=== PATIENT | male | born 1990 | race Caucasian/White ===

== ENCOUNTER 2020-07-28 10:20 | Outpatient (CLI) | payer BC, SELFPAY ==
--- NOTE | 2020-07-28 11:00 | NEURO_ITS ---
Patient Number: [id number] Impression: # Complains of numbness of hands. # Left Carpal Tunnel Syndrome. # No ulnar neuropathy. # Normal needle/EMG exam. # Clinical correlation recommended. Nerve Conduction Studies Anti Sensory Summary Table Stim Site NR Peak (ms) P-T Amp (?V) Site1 Site2 Delta-P (ms) Dist (cm) Harley (m/s) Left Median Anti Sensory (2-3nd Digit) Wrist 3.8 24.4 Wrist 2-3nd Digit 3.8 14.0 37 Wrist 4.1 42.3 Wrist 2-3nd Digit 3.8 14.0 37 Right Median Anti Sensory (2-3nd Digit) Wrist 3.8 19.2 Wrist 2-3nd Digit 3.8 14.0 37 Wrist 3.9 34.6 Wrist 2-3nd Digit 3.8 14.0 37 Left Radial Anti Sensory (Base 1st Digit) Wrist 2.7 23.8 Wrist Base 1st Digit 2.7 0.0 Right Radial Anti Sensory (Base 1st Digit) Wrist 2.8 11.4 Wrist Base 1st Digit 2.8 0.0 Left Ulnar Anti Sensory (5th Digit) Wrist 3.1 15.9 Wrist 5th Digit 3.1 14.0 45 Right Ulnar Anti Sensory (5th Digit) Wrist 3.3 53.3 Wrist 5th Digit 3.3 14.0 42 Motor Summary Table Stim Site NR Onset (ms) O-P Amp (mV) Site1 Site2 Delta-0 (ms) Dist (cm) Harley (m/s) Left Median Motor (Abd Poll Brev) Wrist 4.3 4.2 Elbow Wrist 5.8 32.0 55 Elbow 10.1 3.5 Right Median Motor (Abd Poll Brev) Wrist 3.7 2.8 Elbow Wrist 5.2 29.0 56 Elbow 8.9 2.4 Left Ulnar Motor (Abd Dig Minimi) Wrist 3.2 4.9 A Elbow Wrist 5.7 32.0 56 A Elbow 8.9 4.5 Right Ulnar Motor (Abd Dig Minimi) Wrist 3.1 5.6 A Elbow Wrist 6.0 33.0 55 A Elbow 9.1 4.7 F Wave Studies NR F-Lat (ms) L-R F-Lat (ms) Left Median (Mrkrs) (Abd Poll Brev) 31.56 0.79 Right Median (Mrkrs) (Abd Poll Brev) 32.35 0.79 Left Ulnar (Mrkrs) (Abd Dig Min) 32.34 0.99 Right Ulnar (Mrkrs) (Abd Dig Min) 31.35 0.99 EMG Side Muscle Nerve Root Ins Act Fibs Amp Dur Recrt Comment Right 1stDorInt Ulnar C8-T1 Nml Nml Nml Nml Nml Right Ext Indicis Radial (Post Int) C7-8 Nml Nml Nml Nml Nml Right Ext Digitorum Radial (Post Int) C7-8 Nml Nml Nml Nml Nml Right BrachioRad Radial C5-6 Nml Nml Nml Nml Nml Right PronatorTeres Median C6-7 Nml Nml Nml Nml Nml Right Abd Poll Brev Median C8-T1 Nml Nml Nml Nml Nml Left 1stDorInt Ulnar C8-T1 Nml Nml Nml Nml Nml Left Ext Indicis Radial (Post Int) C7-8 Nml Nml Nml Nml Nml Left Ext Digitorum Radial (Post Int) C7-8 Nml Nml Nml Nml Nml Left BrachioRad Radial C5-6 Nml Nml Nml Nml Nml Left PronatorTeres Median C6-7 Nml Nml Nml Nml Nml Left Abd Poll Brev Median C8-T1 Nml Nml Nml Nml Nml MTDD
== END 2020-07-28 10:21 | disposition home or self-care (01) ==
PROVIDERS: PCP Nurse Practitioner Adult Health; Visit Provider Nurse Practitioner Adult Health
DX: R20.2 Paresthesia of skin (principal); G56.02 Carpal tunnel syndrome, left upper limb
CPT/HCPCS: 95886; 95911

== ENCOUNTER 2020-11-04 08:27 | Emergency (ER) | payer BC, SELFPAY ==
[2020-11-04 08:47] VITALS: BP 121/76; PULSE 106; RESP 15; TEMP 36.7; O2SAT 99
[2020-11-04 08:53] LABS: Glucose Point of Care 402 (65-105)
[2020-11-04] MEDS: SODIUM CHLORIDE 0.9% IV 1,000 ML 999 ML IV CONT ×2 (08:59→09:42)
[2020-11-04 09:02] LABS: Basophils Percent Auto 0.7 % (0.2-1.2); Eosinophils Absolute Auto 0.2 K/mm3 (0-0.3); Eosinophils Percent Auto 2.6 % (0-4.4); Hematocrit 44.5 % (42.0-52.0); Hemoglobin 15.4 g/dL (14.0-18.0); Immature Granulocyte Absolute 0.02 K/mm3 (0.00-0.031); Immature Granulocyte Percent A 0.3 % (0-0.5); Lymphocytes Absolute Auto 0.93 K/mm3 (0.9-3.2); Lymphocytes Percent Auto 16.1 % (18.3-44.2); Mean Corpuscular HGB Conc 34.6 g/dl (32-36); Mean Corpuscular Hemoglobin 32.2 pg (26-34); Mean Corpuscular Volume 92.9 fl (80-100); Mean Platelet Volume 9.9 fl (7.4-10.4); Monocytes Absolute Auto 0.5 K/mm3 (0.1-0.6); Monocytes Percent Auto 8.3 % (2.6-8.5); Neutrophils Absolute Auto 4.2 K/mm3 (1.3-6.7); Platelet Count Result 261 k/mm3 (150-375); Red Blood Count 4.79 M/mm3 (4.6-6.20); Red Cell Distribution Width 12.3 % (11.5-14.5); White Blood Count 5.8 K/mm3 (4.5-10.0)
[2020-11-04 09:13] LABS: Alanine Aminotransferase 30 U/L (4-50); Albumin Level 4.5 g/dL (3.5-5.1); Alkaline Phosphatase 75 U/L (38-126); Anion Gap 13 mmol/L (8-16); Aspartate Amino Transferase 41 U/L (17-59); Bilirubin,Total 0.5 mg/dL (0.2-1.3); Blood Urea Nitrogen 12 mg/dL (9-20); Calcium 8.7 mg/dL (8.4-10.2); Carbon Dioxide 25 mmol/L (22-30); Chloride 101 mmol/L (98-107); Estimated CRCL calculation 133 ml/min; Estimated Glomerular Filt Rate > 60; Glucose 395 mg/dL (75-110); Phosphorus 4.4 mg/dL (2.5-4.5); Potassium 4.5 mmol/L (3.4-5.0); Sodium 139 mmol/L (137-145)
[2020-11-04 09:15] LABS: Add Urine Microscopic? YES; Appearance Urine Clear (Clear); Bacteria Urine Trace /hpf; Bilirubin Urine Negative (Negative); Blood Urine Negative (Negative); Color Urine Straw (Yellow); Glucose Urine UA 3+ mg/dL (Negative); Ketones Urine 1+ mg/dL (Negative); Leukocyte Esterase Ur Negative LEU/UL (Negative); Nitrate Urine Negative (Negative); Protein Urine 1+ mg/dL (Negative); RBC Urine 0-2 /hpf (0-2); Specific Grav Ur 1.028 (1.001-1.035); Urobilinogen Urine Negative mg/dL (<2.0); WBC Urine 0-3 /hpf
[2020-11-04 09:21] LABS: Beta-Hydroxybutyrate/Acetoacetate 1.41 mmol/L (0.02-0.27)
--- NOTE | 2020-11-04 09:26 | ED.RECABL ---
HPI - Recheck/Abnormal Lab/Rx General Chief Complaint: Recheck/Abnormal Lab/Rx Stated Complaint: blood sugar messed up Time Seen by Provider: 11/04/20 09:11 Source: patient Mode of arrival: ambulatory Limitations: no limitations History of Present Illness HPI narrative: This is a 30-year-old male that presents the emergency department for abnormal blood sugar x2 weeks. Reports he recently was treated with antibiotics for pneumonia. Reports since then he has been having some trouble keeping his blood sugar under control. His blood sugar has been as high as 600. He does have a primary care doctor. Reports he has been taking his insulin as prescribed. Does report some nausea and vomiting this morning. Denies fever, abdominal pain, or dysuria. Related Data Home Medications Medication Instructions Recorded Confirmed dextroamphetamine-amphetamine 20 20 mg PO BID 05/11/20 05/15/20 mg tablet glucagon (human recombinant) 1 mg 1 mg SUB-Q Q20M PRN 05/15/20 05/15/20 solution for injection Allergies Allergy/AdvReac Type Severity Reaction Status Date / Time amoxicillin Allergy Unknown Verified 09/06/10 16:04 Cephalosporins Allergy Unknown Verified 09/06/10 16:04 tramadol Allergy Unknown Verified 09/06/10 16:12 Soy Milk Allergy Mild Uncoded 05/02/18 10:06 Review of Systems Review of Systems: Narrative: CONSTITUTIONAL: Denies fever GASTROINTESTINAL: Reports nausea and vomiting. Denies abdominal pain GENITOURINARY: Denies dysuria All systems reviewed & are unremarkable except as noted in HPI and below PMFSH Past Medical History Medical History (Updated 11/04/20 @ 10:22 by Soumya Jiang PA-C) ADHD Anxiety Type 1 diabetes mellitus with hyperglycemia, with long-term current use of insulin Family History Family History Other Family history of coronary artery disease Family history of malignant neoplasm of male breast Social History Social History Smoking status: Never smoker Alcohol intake: current Exam Narrative: Exam Narrative: GENERAL: Well-appearing, well-nourished, and in no acute distress. HEAD: Normocephalic, atraumatic. EYES: EOMI. ENT: Mucous membranes moist. Oropharynx without tonsillar hypertrophy exudate or other lesions. NECK: Supple. No adenopathy or masses. CHEST: Clear to auscultation. No respiratory distress. No wheezes rales or rhonchi HEART: Regular rate and rhythm. No murmur heard. Normal peripheral pulses. ABDOMEN: Soft, nontender, nondistended, normal active bowel sounds. No CVA tenderness EXTREMITIES: Normal range of motion. No edema. SKIN: Warm, dry, no rash. NEURO: No focal deficits. Alert and oriented x3. PSYCH: Normal mood and affect Course Vital Signs Vital signs: Vital Signs Temperature 98.1 F 11/04/20 08:47 Pulse Rate 106 H 11/04/20 08:47 Respiratory Rate 15 11/04/20 08:47 Blood Pressure 121/76 11/04/20 08:47 Pulse Oximetry 99 11/04/20 08:47 Temperature 98.1 F 11/04/20 08:47 Pulse Rate 106 H 11/04/20 08:47 Respiratory Rate 15 11/04/20 08:47 Blood Pressure 121/76 11/04/20 08:47 Pulse Oximetry 99 11/04/20 08:47 MDM - Recheck/Abnormal Lab/Rx MDM Narrative Medical decision making narrative: Patient presents to the ER for hyperglycemia. He is afebrile and nontoxic appearing. Mildly tachycardic upon arrival, this normalized with IV fluid administration. CBC is without leukocytosis. Metabolic panel notable for blood sugar of 395. No anion gap and patient's bicarb is normal. UA with glucose and 1+ ketones. Beta hydroxybutyrate is elevated. Patient hydrated while in the ED without evidence of DKA with normal anion gap and no acidosis, is felt appropriate for further outpatient evaluation. Most recent blood sugar 291. He was given warnings to return to the ER Lab Data Attestation: I reviewed the patient's lab result
[2020-11-04] MEDS: INSULIN HUMAN REGULAR (*BKC) 100 UNITS/ML 7 UNITS IV PUSH (09:37)
[2020-11-04 10:33] LABS: Glucose Point of Care 291 (65-105)
[2020-11-04 11:19] VITALS: BP 145/81; PULSE 80; RESP 18; O2SAT 99
== END 2020-11-04 11:21 | disposition home or self-care (01) ==
PROVIDERS: Emergency Provider Emergency Medicine; PCP Nurse Practitioner Adult Health
DX: E10.65 Type 1 diabetes mellitus with hyperglycemia (principal); Z79.4 Long term (current) use of insulin; F90.9 Attention-deficit hyperactivity disorder, unspecified type
CPT/HCPCS: 36415; 80053; 81001; 82010; 82948; 83735; 84100; 85025; 96361; 96374; 99284; J1815; J7030

== ENCOUNTER 2021-04-15 09:40 | Emergency (ER) | payer BC, SELFPAY ==
[2021-04-15 09:48] VITALS: BP 146/86; PULSE 79; RESP 20; TEMP 36.7; O2SAT 100
--- NOTE | 2021-04-15 10:45 | ED.EAR ---
HPI - Ear Problem General Chief complaint: Ear Stated complaint: right ear swelling Time Seen by Provider: 04/15/21 10:00 Source: patient Mode of arrival: ambulatory Limitations: no limitations History of Present Illness HPI Narrative: Patient is a 30-year-old male who presents complaining of right ear pain x1 day. He reports discharge from ear this am and reports tenderness with palpation to ear. Patient denies fever and all other complaints at this time. He denies taking over the counter medication for pain prior to arrival. Patient reports swimming frequently over the past few weeks. Patient denies significant medical history. MD Complaint: ear pain, ear discharge and decreased hearing Location: right ear Related Data Home Medications Medication Instructions Recorded Confirmed dextroamphetamine-amphetamine 20 20 mg PO BID 05/11/20 05/15/20 mg tablet glucagon (human recombinant) 1 mg 1 mg SUB-Q Q20M PRN 05/15/20 05/15/20 solution for injection insulin aspart U-100 100 unit/mL See Rx Instructions SUBCUT TID 12/16/20 (3 mL) subcutaneous pen Allergies Allergy/AdvReac Type Severity Reaction Status Date / Time amoxicillin Allergy Unknown Unknown Verified 04/15/21 10:02 Cephalosporins Allergy Unknown Unknown Verified 04/15/21 10:02 tramadol Allergy Unknown Unknown Verified 04/15/21 10:02 Soy Milk Allergy Mild Unknown Uncoded 04/15/21 10:02 Review of Systems Review of Systems: Narrative: CONSTITUTIONAL: Denies fever, chills, or sweats. EYES: Denies visual changes, redness, or discharge. ENT: Right otalgia CARDIOVASCULAR: Denies chest pain, palpitations, or edema. RESPIRATORY: Denies cough or dyspnea. GASTROINTESTINAL: Denies abdominal pain, nausea, vomiting, or diarrhea. GENITOURINARY: Denies dysuria or hematuria. SKIN: Denies rash or itching. MUSCULOSKELETAL: Denies back pain, joint pain, or myalgia. NEUROLOGIC: Denies headache, numbness, dizziness, or weakness. PSYCHIATRIC: Denies anxiety or depression. [facility] Past Medical History Medical History ADHD Anxiety Type 1 diabetes mellitus with hyperglycemia, with long-term current use of insulin Family History Family History Other Family history of coronary artery disease Family history of malignant neoplasm of male breast Social History Social History (Updated 04/15/21 @ 10:50 by LOLA Solis) Smoking status: Never smoker Alcohol intake: current Alcohol use details: occasional Substance use: current Substance use type: marijuana Other substance usage details: occasional Exam Narrative: Exam Narrative: GENERAL: Well-appearing, well-nourished, and in no acute distress. HEAD: Normocephalic, atraumatic. EYES: EOMI. No redness or drainage. Conjunctiva are normal. ENT: Mucous membranes pink and moist. Erythema and edema with discharge noted to right ear canal, TM not visualized at this time, edema to preauricular and posterior auricular lymph nodes, tenderness with palpation, no erythema or warmth noted to external ear at this time. CHEST: No respiratory distress. HEART: Regular rate and rhythm. EXTREMITIES: Normal range of motion. No edema. SKIN: Warm, dry, no rash. NEURO: No focal deficits. Alert and oriented x3. Gait steady. PSYCH: Normal affect. No signs of depression or anxiety. Course Vital Signs Vital signs: Vital Signs Temperature 36.7 C 04/15/21 09:48 Pulse Rate 79 04/15/21 09:48 Respiratory Rate 20 04/15/21 09:48 Blood Pressure 146/86 H 04/15/21 09:48 Pulse Oximetry 100 04/15/21 09:48 Temperature 36.7 C 04/15/21 09:48 Pulse Rate 89 04/15/21 11:32 Respiratory Rate 15 04/15/21 11:32 Blood Pressure 144/91 H 04/15/21 11:32 Pulse Oximetry 98 04/15/21 11:32 Medical Decision Making MDM Narrative Medical decision making narrative: Patient's ear flushed with saline, l
--- NOTE | 2021-04-15 11:22 | PC.NURSE ---
ASSUMED CARE OF PT AT THIS TIME, DARIELA WEBSTER AT BEDSIDE, DISCUSSED POC
[2021-04-15 11:32] VITALS: BP 144/91; PULSE 89; RESP 15; O2SAT 98
== END 2021-04-15 11:57 | disposition home or self-care (01) ==
PROVIDERS: Emergency Provider Nurse Practitioner; PCP Nurse Practitioner Adult Health
DX: H60.501 Unspecified acute noninfective otitis externa, right ear (principal); E11.9 Type 2 diabetes mellitus without complications; Z79.4 Long term (current) use of insulin
CPT/HCPCS: 99283; A9270

== ENCOUNTER 2021-10-13 12:48 | Emergency (ER) | payer SELFPAY ==
--- NOTE | ~2021-10-13 | CT_ITS ---
EXAMINATION: CT abdomen pelvis wo con DATE: 10/13/2021 16:43 INDICATION: Left flank pain TECHNIQUE: Computed tomography (CT) of the abdomen and pelvis was performed without intravenous contr ast. Automated exposure control and iterative reconstruction technique were employed. The dose-length product was 252.31 mGy-cm. COMPARISON: None FINDINGS: Minimal discoid atelectasis in the anterior right middle lobe and lingula. Heart size is normal. No p ericardial or pleural effusion. Liver, gallbladder, spleen, pancreas and bilateral adrenal glands are normal. Kidneys and ureters are normal with no urolithiasis, hydroureteronephrosis or perinephric/ur eteral stranding. Bladder is normal. Prostate is significantly enlarged for age measuring 5.1 x 4.1 c m in maximal transaxial dimensions. No bowel obstruction. The appendix is not visualized with discrim ination of the multiple loops of bowel in the abdomen and pelvis limited by the relative paucity of i ntervening intra-abdominal fat. No abscess or free intraperitoneal gas or fluid. No pathologically en larged abdominal or pelvic lymphadenopathy. IMPRESSION: 1. Prostatomegaly, atypical for age. 2. No urolithiasis or other acute intra-abdominal/pelvic process. Reviewed, dictated and finalized at location H. SEAL ASSEMBLER
--- NOTE | ~2021-10-13 | XR_ITS ---
EXAMINATION: XR chest 2V DATE: 10/13/2021 15:10 INDICATION: Left rib pain. Pleuritic chest pain. TECHNIQUE: Frontal and lateral views of the chest were obtained. COMPARISON: Chest single view 05/02/2018 FINDINGS: The chest demonstrates clear lungs without pneumonia, pleural effusion, or pneumothorax. Th e heart size is normal. IMPRESSION: 1. No acute cardiopulmonary disease. Reviewed, dictated and finalized at location A. EN EQUIPMENT PREPARER
[2021-10-13 13:07] VITALS: BP 144/87; PULSE 80; RESP 18; TEMP 36.6; O2SAT 100
[2021-10-13 14:59] LABS: Glucose Point of Care 67 mg/dl (65-105)
--- NOTE | 2021-10-13 15:14 | PC.NURSE ---
Patient reported to Dr. Farrell he felt like his sugar was low. Bedside glucose checked. Crackers and juice provided to patient at this time.
[2021-10-13 16:01] LABS: Basophils Percent Auto 0.7 % (0.2-1.2); Eosinophils Absolute Auto 0.2 K/mm3 (0-0.3); Hemoglobin 13.3 g/dL (14.0-18.0); Immature Granulocyte Absolute 0.01 K/mm3 (0.00-0.031); Immature Granulocyte Percent A 0.2 % (0-0.5); Lymphocytes Absolute Auto 1.66 K/mm3 (0.9-3.2); Mean Corpuscular HGB Conc 34.1 g/dl (32-36); Mean Corpuscular Hemoglobin 32.4 pg (26-34); Mean Corpuscular Volume 94.9 fl (80-100); Mean Platelet Volume 9.8 fl (7.4-10.4); Monocytes Absolute Auto 0.5 K/mm3 (0.1-0.6); Monocytes Percent Auto 10.2 % (2.6-8.5); Neutrophils Absolute Auto 2.2 K/mm3 (1.3-6.7); Neutrophils Percent Auto 47.9 % (45.5-73.1); Platelet Count Result 209 k/mm3 (150-375); Red Blood Count 4.11 M/mm3 (4.6-6.20); Red Cell Distribution Width 11.6 % (11.5-14.5); White Blood Count 4.6 K/mm3 (4.5-10.0)
[2021-10-13 16:12] LABS: Alanine Aminotransferase 23 U/L (4-50); Albumin Level 3.9 g/dL (3.5-5.1); Alkaline Phosphatase 53 U/L (38-126); Anion Gap 7 mmol/L (8-16); Aspartate Amino Transferase 26 U/L (17-59); Bilirubin,Total 0.3 mg/dL (0.2-1.3); Blood Urea Nitrogen 8 mg/dL (9-20); Calcium 8.8 mg/dL (8.4-10.2); Carbon Dioxide 26 mmol/L (22-30); Chloride 104 mmol/L (98-107); Estimated CRCL calculation 184 ml/min; Estimated Glomerular Filt Rate > 60; Glucose 170 mg/dL (65-110); Lipase 48 U/L (23-300); Potassium 3.9 mmol/L (3.4-5.0); Sodium 137 mmol/L (137-145)
[2021-10-13 16:14] LABS: INR 0.9
[2021-10-13 16:14] LABS: Add Urine Microscopic? YES; Appearance Urine Clear (Clear); Bilirubin Urine Negative (Negative); Blood Urine Negative (Negative); Color Urine Yellow (Yellow); Glucose Urine UA 3+ mg/dL (Negative); Ketones Urine Negative (Negative); Leukocyte Esterase Ur Negative LEU/UL (Negative); Mucus Urine Few /lpf; Nitrate Urine Negative (Negative); Protein Urine 2+ mg/dL (Negative); RBC Urine 0-2 /hpf (0-2); Specific Grav Ur 1.021 (1.001-1.035); Urobilinogen Urine Negative mg/dL (<2.0); WBC Urine 0-3 /hpf
[2021-10-13 16:15] LABS: Partial Thromboplastin Time 25.5 SECONDS (22.3-36.8)
[2021-10-13] MEDS: KETOROLAC (*BKC) 60 MG/2 ML VIAL IM (16:25)
--- NOTE | 2021-10-13 17:26 | ED.GENADULT ---
HPI - General Adult General Chief complaint: Unspecified Stated complaint: left side rib pain Time Seen by Provider: 10/13/21 14:36 Source: patient and RN notes reviewed Mode of arrival: ambulatory Limitations: no limitations History of Present Illness HPI narrative: This is a 31 year old male with history of diabetes mellitus and peripheral neuropathy who presents for evaluation left flank pain. Patient developed left flank pain 3 days ago when he was sitting on the couch. His pain as been constant and nonradiating. His pain is worse with movement and breathing. He has taken Aleve for his pain. He denies associated nausea, vomiting, cough, fever, chills or shortness of breath. He also is complaining of feeling like his blood sugar is low because he has not eaten. Related Data Home Medications Medication Instructions Recorded Confirmed dextroamphetamine-amphetamine 20 20 mg PO BID 05/11/20 05/15/20 mg tablet glucagon (human recombinant) 1 mg 1 mg SUB-Q Q20M PRN 05/15/20 05/15/20 solution for injection insulin aspart U-100 100 unit/mL See Rx Instructions SUBCUT TID 12/16/20 (3 mL) subcutaneous pen Allergies Allergy/AdvReac Type Severity Reaction Status Date / Time amoxicillin Allergy Unknown Unknown Verified 04/15/21 10:02 Cephalosporins Allergy Unknown Unknown Verified 04/15/21 10:02 tramadol Allergy Unknown Unknown Verified 04/15/21 10:02 Soy Milk Allergy Mild Unknown Uncoded 04/15/21 10:02 Review of Systems Review of Systems: All systems reviewed & are unremarkable except as noted in HPI and below PMFSH Past Medical History Medical History ADHD Anxiety Type 1 diabetes mellitus with hyperglycemia, with long-term current use of insulin Family History Family History Other Family history of coronary artery disease Family history of malignant neoplasm of male breast Social History Social History (Updated 04/15/21 @ 10:50 by LOLA Solis) Smoking status: Never smoker Alcohol intake: current Alcohol use details: occasional Substance use: current Substance use type: marijuana Other substance usage details: occasional Exam Narrative: GENERAL: Well-appearing, well-nourished, and in no acute distress. HEAD: Normocephalic, atraumatic THROAT:Mucous membranes moist, Oropharynx normal without erythema, exudate, peritonsillar swelling or fluctuance NECK: Supple, without lymphadenopathy or mass RESPIRATORY: No respiratory distress, Airway patent, Respirations non-labored, Clear to auscultation without rales, rhonchi or wheeze HEART: Regular rate and rhythm. No murmur heard. Normal peripheral pulses. ABDOMEN: Soft, nontender, nondistended, normal active bowel sounds. No masses. No rebound or guarding, No organomegaly. EXTREMITIES: No edema, normal strength with full range of motion. SKIN: Warm, dry, normal color without rash NEURO: Alert and oriented x3. CN 2-12 grossly intact. No focal deficits. PSYCH: Normal mood and affect. GI: Other: focal tenderness, left flank Course Reevaluation(s) Reevaluation #1: I discussed with patient labs and CT. I discussed that CT shows an enlarge prostate so he will need to have follow up. labs negative for infection and PE. Date: 10/13/21 Time: 17:36 Vital Signs Vital signs: Vital Signs Temperature 97.9 F 10/13/21 13:07 Pulse Rate 80 10/13/21 13:07 Respiratory Rate 18 10/13/21 13:07 Blood Pressure 144/87 H 10/13/21 13:07 Pulse Oximetry 100 10/13/21 13:07 Temperature 97.9 F 10/13/21 13:07 Pulse Rate 68 10/13/21 18:01 Respiratory Rate 18 10/13/21 18:01 Blood Pressure 144/87 H 10/13/21 13:07 Pulse Oximetry 99 10/13/21 18:01 Medical Decision Making Vital Signs Vital Signs: Vital Signs Temperature 97.9 F 10/13/21 13:07 Pulse Rate 80 10/13/21 13:07 Respiratory R
[2021-10-13] MEDS: CYCLOBENZAPRINE HCL 10 MG TABLET PO (17:56)
[2021-10-13 18:01] VITALS: PULSE 68; RESP 18; O2SAT 99
== END 2021-10-13 18:01 | disposition home or self-care (01) ==
PROVIDERS: Emergency Provider General Practice; PCP Nurse Practitioner Adult Health
DX: R10.9 Unspecified abdominal pain (principal); N40.0 Benign prostatic hyperplasia without lower urinary tract symptoms; E10.42 Type 1 diabetes mellitus with diabetic polyneuropathy; F90.9 Attention-deficit hyperactivity disorder, unspecified type; F41.9 Anxiety disorder, unspecified
CPT/HCPCS: 36415; 71046; 74176; 80053; 81001; 82948; 83690; 85025; 85380; 85610; 85730; 96372; 99284; A9270; J1885

== ENCOUNTER 2022-04-14 16:06 | Emergency (ER) | payer OTHER, SELFPAY ==
--- NOTE | ~2022-04-14 | XR_ITS ---
EXAMINATION: XR hand LT min 3V INDICATION: Left hand pain TECHNIQUE: Three views of the left hand are obtained. COMPARISON: None available FINDINGS: There is no fracture. There is flexion at the third proximal interphalangeal joint with hyp erextension at the third distal interphalangeal joint. The joint spaces are maintained. There is soft tissue swelling of the third finger. IMPRESSION: 1. Flexion at the third proximal interphalangeal joint with extension at the third distal interphalan geal joint. Absence of obvious fracture suggests tendinous avulsion. Reviewed, dictated and finalized at location F. IMPRESSION: 1. Flexion at the third proximal interphalangeal joint with extension at the th ird distal interphalangeal joint. Absence of obvious fracture suggests tendinou s avulsion.
[2022-04-14 16:13] VITALS: BP 159/71; PULSE 112; RESP 18; TEMP 37; O2SAT 98
--- NOTE | 2022-04-14 17:25 | ED.WOUNDLAC ---
HPI - Wound/Laceration General Chief Complaint: Wound/Laceration Stated Complaint: 3rd finger lac Time Seen by Provider: 04/14/22 16:18 History of Present Illness HPI narrative: 31-year-old male presents the emergency room for evaluation of a laceration to his left third finger. Patient states that he was moving furniture at home, when he suffered a laceration from a piece of the metal frame. Related Data Home Medications Medication Instructions Recorded Confirmed dextroamphetamine-amphetamine 20 20 mg PO BID 05/11/20 05/15/20 mg tablet (Adderall) glucagon (human recombinant) 1 mg 1 mg subcut Q20M PRN hypoglycemia 05/15/20 05/15/20 solution for injection (Glucagon Emergency Kit) insulin aspart U-100 100 unit/mL See Rx Instructions subcut TID 12/16/20 (3 mL) subcutaneous pen (Novolog Flexpen U-100 Insulin aspart) Allergies Allergy/AdvReac Type Severity Reaction Status Date / Time amoxicillin Allergy Unknown Unknown Verified 04/14/22 18:04 Cephalosporins Allergy Unknown Unknown Verified 04/14/22 18:04 tramadol Allergy Unknown Unknown Verified 04/14/22 18:04 Soy Milk Allergy Severe Swelling Uncoded 04/14/22 18:04 of Lip/Tongue/Throat Review of Systems Review of Systems: CONSTITUTIONAL: Denies fever, chills, or sweats. EYES: Denies visual changes, redness, or discharge. ENT: Denies rhinorrhea, congestion, sore throat, or otalgia. CARDIOVASCULAR: Denies chest pain, palpitations, or edema. RESPIRATORY: Denies cough or dyspnea. GASTROINTESTINAL: Denies abdominal pain, nausea, vomiting, or diarrhea. GENITOURINARY: Denies dysuria or hematuria. SKIN: Reports laceration to the left middle finger MUSCULOSKELETAL: Denies back pain, joint pain, or myalgia. NEUROLOGIC: Denies headache, numbness, dizziness, or weakness. PSYCHIATRIC: Denies anxiety or depression. [facility] Past Medical History Medical History ADHD Anxiety Type 1 diabetes mellitus with hyperglycemia, with long-term current use of insulin Family History Family History Other Family history of coronary artery disease Family history of malignant neoplasm of male breast Social History Social History Smoking status: Never smoker Alcohol intake: current Alcohol use details: occasional Substance use: current Substance use type: marijuana Other substance usage details: occasional Exam Narrative: GENERAL: Well-appearing, well-nourished, and in no acute distress. HEAD: Normocephalic, atraumatic. EYES: PERRLA and EOMI. ENT: Nares clear, no rhinorrhea or epistaxis. Mucous membranes moist. Oropharynx without tonsillar hypertrophy exudate or other lesions. Bilateral TMs pearly mujica nonbulging NECK: Supple. No adenopathy or masses. No carotid bruits or JVD CHEST: Clear to auscultation. No respiratory distress. No wheezes rales or rhonchi HEART: Regular rate and rhythm. No murmur heard. Normal peripheral pulses. ABDOMEN: Soft, nontender, nondistended, normal active bowel sounds. EXTREMITIES: Normal range of motion. No edema. Left third finger: [place]-neck deformity of DIP joint SKIN: Left third finger: 1.3 cm laceration dorsal surface, over the PIP joint, no tendon disruption noted, neurovascular is intact distally NEURO: No focal deficits. Alert and oriented x3. PSYCH: Normal mood and affect. Course Vital Signs Vital signs: Vital Signs Temperature 37.0 C 04/14/22 16:13 Pulse Rate 112 H 04/14/22 16:13 Respiratory Rate 18 04/14/22 16:13 Blood Pressure 159/71 H 04/14/22 16:13 Pulse Oximetry 98 04/14/22 16:13 Oxygen Delivery Room Air 04/14/22 16:13 Temperature 37.0 C 04/14/22 16:13 Pulse Rate 112 H 04/14/22 16:13 Respiratory Rate 18 04/14/22 16:13 Blood Pressure 159/71 H 04/14/22 16:13 Pulse Oximetry 98 04/14/22 16:13 Oxygen Del
--- NOTE | 2022-04-14 18:02 | PC.NURSE ---
Pt states he took his own insulin, discussed BS was 460 in EMS
[2022-04-14 18:49] VITALS: BP 128/71; PULSE 78; RESP 18; TEMP 37.2; O2SAT 99
== END 2022-04-14 18:49 | disposition home or self-care (01) ==
LOC: ANHED 18:17
PROVIDERS: Emergency Provider Nurse Practitioner Family; PCP Nurse Practitioner Adult Health
DX: S61.213A Laceration without foreign body of left middle finger without damage to nail, initial encounter (principal); M20.032 Swan-neck deformity of left finger(s); E10.9 Type 1 diabetes mellitus without complications; F90.9 Attention-deficit hyperactivity disorder, unspecified type; Z79.4 Long term (current) use of insulin; W26.8XXA Contact with other sharp object(s), not elsewhere classified, initial encounter
CPT/HCPCS: 12001; 73130; 99283

== ENCOUNTER 2022-04-28 01:01 | Day surgery (SDC) | payer OTHER, SELFPAY ==
[2022-04-26 09:37] VITALS: BMI 23.6
--- NOTE | 2022-04-26 09:45 | PC.NURSE ---
Report to the Outpatient Waiting Room, entrance under the green pavilion located off [facility], at time 1100 on date 04/28/22. OR Time: 1300. - You and your visitor will be asked a series of questions to screen for COVID 19 for your protection. - Only one visitor is allowed at this time. - The patient visitor is requested to leave or wait in car when not with patient. - A mask is required within the hospital. Patients may have clear liquids (water, carbonated beverages, clear teas, apple juice) until 3 hours prior to surgery with a maximum of 20 ounces. - No food from midnight until time of surgery Take the following medications with a SIP of water the morning of surgery: 1/2 AM INSULIN DOSE Medications to discontinue per physician: N/A Date to take last dose: N/A Please no make-up, nail mongolian, hairspray, perfume, deodorant, or body powder the day of surgery. No jewelry (including any body piercings) or valuables the day of surgery, leave them at home. Please take a shower or bath the night before, or the morning of, surgery with an antibacterial soap. Wear comfortable, loose fitting clothing. - Jewelry must be removed prior to entering the operating room. Rings and piercings that are not removed may be cut off. - The hospital will not accept responsibility for valuables. - Please leave all valuables, including medications, at home the day of surgery. If you are going home after surgery, a licensed powder truck driver must drive you home. - NO public transportation without another adult. - We recommend that an adult stay with you for 24 hours following discharge. - We also recommend that you do not drive, make important decision, drink alcoholic beverages, or take any drugs that were not prescribed by your health care provider for at least 24 hours after your discharge time. Follow any additional instructions given to you from your surgeon. If you or anyone in your household have experienced Covid symptoms in the past week, please notify your surgeon or the nurse liaison at the phone number below for possible testing. Telephone instructions given to PT - SE BR[facility] and asked if any additional questions and then verbalized understanding. Patient advised to call surgeon office or pre surgery nurse liaison [phone] if any additional questions.
--- NOTE | ~2022-04-28 | XR_ITS ---
EXAMINATION: XR surgery orthopedic DATE: 04/28/2022 14:57 INDICATION: C-wire fixation of the left third digit TECHNIQUE: 2 fluoroscopic images of the left third digit were obtained during procedure performed by Dr. Pineda. Radiologist was not present for the imaging or procedure. The amount of fluoroscopy time u sed during this procedure was 0.4 minutes. COMPARISON: 04/14/2022 FINDINGS: Interval reduction of the previously seen pooling years deformity of the left third digit. There is a percutaneous wire extending obliquely across the proximal interphalangeal joint which has been fixed in extension. No fracture. There is a tourniquet about the base of the third digit with more distal soft tissue swelling. There is a likely open surgical wound at the dorsal aspect of the proximal inte rphalangeal joint. IMPRESSION: 1. Percutaneous wire fixation across the left third proximal interphalangeal joint which is fixed in full extension. See procedure note for further detail. Reviewed, dictated and finalized at location A. IMPRESSION: 1. Percutaneous wire fixation across the left third proximal interphalangeal sia int which is fixed in full extension. See procedure note for further detail.
--- NOTE | 2022-04-28 07:17 | WPDHPUPDATE1 ---
History and Physical Update Update Date/Time: 04/28/22 07:17 History and Physical has been reviewed, including an updated exam of the patient. There are NO changes in the patient's condition. Risks, benefits, and alternatives have been discussed and questions answered. Patient agrees to proceed with procedure.
[2022-04-28 07:53] VITALS: BP 107/69; PULSE 87; RESP 18; TEMP 36.4; O2SAT 99
--- NOTE | 2022-04-28 08:31 | SUR.PREOP ---
PT ARRIVED EARLY FOR SURGERY DUE TO RIDE AVAILABILITY. PT RESTING ON STRETCHER. DENIES NEEDS.
--- NOTE | 2022-04-28 09:21 | WPDHPUPDATE1 ---
History and Physical Update Update Date/Time: 04/28/22 09:21 Repair of central slip of the extensor tendon of right middle finger with possible Mitek anchor and/or C-wire . History and Physical has been reviewed, including an updated exam of the patient. There are NO changes in the patient's condition. Risks, benefits, and alternatives have been discussed and questions answered. Patient agrees to proceed with procedure.
[2022-04-28 10:24] LABS: Glucose Point of Care 267 mg/dl (65-105)
--- NOTE | 2022-04-28 10:24 | WPDANESEPPF ---
Anes - Initial Pre Proc Eval Procedure: Operation Date: 04/28/22 13:00 Proposed Procedures p Repair Extensor Tendon Central Slip Left Middle Finger, Possible K- Wire, Possible Mitek Anchors - Dennis Pineda MD Date/Time: 04/28/22 10:24 Surgeon: Dennis Pineda MD Pre Op Diagnosis: laceration central slip to the lft middle finger Patient Data Age: 31 Gender: M Height: 1.78 m Weight: 74.84 kg Allergies Allergy/AdvReac Type Severity Reaction Status Date / Time tramadol Allergy Unknown Headache Verified 04/26/22 09:33 fentanyl AdvReac Unknown Headache Verified 04/26/22 09:33 Soy Milk Allergy Severe Swelling Uncoded 04/26/22 09:33 of Lip/Tongue/Throat Home Medications Medication Instructions Recorded Confirmed Type glucagon (human recombinant) 1 mg 1 mg subcut Q20M PRN hypoglycemia 05/15/20 04/26/22 History solution for injection (Glucagon Emergency Kit) insulin syringe-needle U-100 1 mL #300 ea 08/13/20 Rx 30 gauge x 1/2 (BD Insulin Syringe Ultra-Fine) pen needle, diabetic 30 gauge x #400 ea 08/13/20 Rx 5/16 blood sugar diagnostic (Contour #600 ea 11/06/20 Rx Next Test Strips) insulin aspart U-100 100 unit/mL See Rx Instructions subcut TID 12/16/20 04/26/22 History (3 mL) subcutaneous pen (Novolog Flexpen U-100 Insulin aspart) insulin glargine 100 unit/mL 25 unit (0.25 mL) subcut QPM 30 12/16/20 04/26/22 Rx subcutaneous solution (Lantus days #7.5 mL U-100 Insulin) Patient hx anesthesia problems: none Family hx anesthesia problems: none Results Review: All pre-operative results and documents have been reviewed as part of the pre-operative evaluation. FOR[facility]LY [facility] Past Medical History Medical History ADHD Anxiety Type 1 diabetes mellitus with hyperglycemia, with long-term current use of insulin Family History Family History Other Family history of coronary artery disease Family history of malignant neoplasm of male breast Social History Social History Smoking packs per day: 1 Smoking cigarettes per day: 20.0 Years smoked: 16 Smoking pack-years: 16.00 Smoking status: Former smoker Tobacco type: cigarettes Smoking end date: 10/23/20 Alcohol intake: never Alcohol use details: occasional Substance use: current Substance use type: marijuana Other substance usage details: occasional Living arrangements: with friend(s) Spiritual care concerns: No Anes - Eval Final PreProcedure Day of Procedure 04/28/22 10:24 Patient weight: normal Heart: regular rate and rhythm Lungs: clear to auscultation Airway: Mallampati scale class II Neurological: alert and oriented Last oral intake: >/= 8 hours ASA classification: III Emergent: no Anesthetic plan: proceed Anesthesia type and monitoring: general GIVS and standard monitoring Results Review: All pre-operative results and documents have been reviewed as part of the pre-operative evaluation. Informed Consent: The patient's anesthetic plan and its attendant risks and benefits were discussed with the patient/family/POA. Questions were solicited and answers provided to the satisfaction of the patient/family/POA.
[2022-04-28] MEDS: LACTATED RINGERS 1,000 ML 30 ML IV CONT ×2 (10:25→15:04)
[2022-04-28] MEDS: MIDAZOLAM HCL (*CRX) 2 MG/2 ML VIAL IV PUSH (10:32)
[2022-04-28 10:40] LABS: Anion Gap 6 mmol/L (8-16); Blood Urea Nitrogen 16 mg/dL (9-20); Calcium 8.9 mg/dL (8.4-10.2); Carbon Dioxide 28 mmol/L (22-30); Chloride 102 mmol/L (98-107); Estimated CRCL calculation 150 ml/min; Estimated Glomerular Filt Rate > 60; Glucose 253 mg/dL (65-110); Potassium 4.8 mmol/L (3.4-5.0); Sodium 136 mmol/L (137-145)
--- NOTE | 2022-04-28 11:18 | SUR.PREOP ---
1035 PT MEDICATED FOR NERVOUSNESS AND C/O HEADACHE. 1048 PT RESTING QUIETLY WITH EYES CLOSED, 1110 PT RESTING QUIETLY WITH EYES CLOSED
[2022-04-28 13:32] LABS: Glucose Point of Care 317 mg/dl (65-105)
--- NOTE | 2022-04-28 13:35 | WPDHPUPDATE1 ---
History and Physical Update Update Date/Time: 04/28/22 13:35 History and Physical has been reviewed, including an updated exam of the patient. There are NO changes in the patient's condition. Risks, benefits, and alternatives have been discussed and questions answered. Patient agrees to proceed with procedure.
--- NOTE | 2022-04-28 13:36 | WPDHPUPDATE1 ---
History and Physical Update Update Date/Time: 04/28/22 13:36 History and Physical has been reviewed, including an updated exam of the patient. There are NO changes in the patient's condition. Risks, benefits, and alternatives have been discussed and questions answered. Patient agrees to proceed with procedure.
[2022-04-28] MEDS: INSULIN HUMAN REGULAR (*BKC) 100 UNITS/ML SUB-Q (13:45)
[2022-04-28] MEDS: LIDOCAINE/EPINEPHRINE 0.5%/1:200,000 50 ML VIAL 10 ML INFILTRATE (14:20)
[2022-04-28 15:04] VITALS: BP 86/51; PULSE 63; RESP 20; TEMP 36.4; O2SAT 95
[2022-04-28 15:10] VITALS: BP 89/54; PULSE 63; RESP 20; O2SAT 95
[2022-04-28 15:16] LABS: Glucose Point of Care 285 mg/dl (65-105)
--- NOTE | 2022-04-28 15:17 | SUR.PHASEII ---
1517- Call to anesthesiologist Dr. Bacon to notify patient's BG is 285. Per Dr. Bacon once patient awake instruct him to give usual dosing of insulin to manage elevated blood glucose.
[2022-04-28 15:30] VITALS: BP 98/56; PULSE 62; RESP 18; O2SAT 97
--- NOTE | 2022-04-28 15:30 | SUR.PHASEII ---
1530- Notified patient of elevated blood glucose of 285 and to manage with usual insulin dosing. Per patient he will treat with insulin.
[2022-04-28 15:50] VITALS: BP 97/61; PULSE 72; RESP 18
--- NOTE | 2022-04-28 15:56 | W.PM.PROC2 ---
Procedure Note - Detailed Date of Procedure 04/28/22 Pre-op Diagnosis laceration central slip to the lft middle finger Post-op Diagnosis Other (Laceration of left middle finger extensor tendon central slip with painful boutonnier deformity.) Procedure Performed Repair of left middle finger extensor tendon central slip with internal c-wire fixation. 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 There is a boutonniere deformity that is painful with the D IP joint. There was a neat transverse laceration across the central slip without deeper injury or evidence of septic joint Description of Procedure The left middle finger was marked on the patient as he waited in the holding area. He was taken to the operating room where he was placed supine on the operating table. He was given IV sedation. The extremity was prepped and draped in usual fashion. A time-out was held and confirmed. The digit was blocked with 1% lidocaine with epinephrine the a digital tourniquet was applied to the base of the finger. The site was accessed through the transverse laceration and Juan type extension is taken onto the middle and the proximal phalanx allowing elevation of triangular skin flaps and exposure of the entire site of injury and both ends of the tendon. There was minimal scarring at this point we were able to see into the interphalangeal joint there appeared to be no additional injuries to cartilage or sign of infection. With extension of the digit apposition of the tendon ends was easily achieved. The repair was done with a 3-0 Ethibond 2 strand repair with modified Dickinson technique. This was then oversewn with the running 5 0 nylon Nickerskiold stitch. A 0.045 in C-wire was then passed across the joint beginning in the middle phalanx and exiting from the proximal phalanx. Pin was fully buried beneath skin. It was bent, cut short and twisted away from the skin. The skin wound was closed with running 5 0 nylon. An Praveen wrap bandage with lightly wrapped Coban was applied. Estimated Blood Loss 0 Drains No Packing No Pathology None sent Complications No immediate complications Condition Stable Disposition Same day
== END 2022-04-28 16:10 | disposition home or self-care (01) ==
PROVIDERS: Anesthesiology; Visit Provider Plastic Surgery
PROC: (CPT 26426; principal; 2022-04-28 13:00)
DX: S66.323A Laceration of extensor muscle, fascia and tendon of left middle finger at wrist and hand level, initial encounter (principal); E10.9 Type 1 diabetes mellitus without complications; Z79.4 Long term (current) use of insulin; Z87.891 Personal history of nicotine dependence; W26.8XXA Contact with other sharp object(s), not elsewhere classified, initial encounter
CPT/HCPCS: 26426; 36415; 80048; 82948; 99199; A9270; C1713; J0131; J1815; J2250; J2704; J7120

== ENCOUNTER 2022-06-01 01:55 | Day surgery (SDC) | payer OTHER, SELFPAY ==
--- NOTE | 2022-05-26 16:32 | PC.NURSE ---
Report to the Outpatient Waiting Room, entrance under the green pavilion located off [facility], at time 0930 _ on date 06/01/22___. OR Time: 1030 _. - You and your visitor will be asked a series of questions to screen for COVID 19 for your protection. - Only one visitor is allowed at this time. - The patient visitor is requested to leave or wait in car when not with patient. - A mask is required within the hospital. Patients may have clear liquids (water, carbonated beverages, clear teas, apple juice) until 3 hours prior to surgery with a maximum of 20 ounces. - No food from midnight until time of surgery - Infants may have breast milk until 4 hours before surgery, formula 6 hours prior to surgery. - Children will be allowed to drink immediately following surgery. If applicable, please bring a bottle or sippy cup to assist with drinking. Juice, water, soda, and popsicles are readily available. For infants on formula, please bring formula the day of surgery. Pacifiers are allowed. Take the following medications with a SIP of water the morning of surgery: __AM MEDICATIONS INCLUDING Medications to discontinue per physician ___NONE Date to take last dose Please no make-up, nail bengali, hairspray, perfume, deodorant, or body powder the day of surgery. No jewelry (including any body piercings) or valuables the day of surgery, leave them at home. Please take a shower or bath the night before, or the morning of, surgery with an antibacterial soap. Wear comfortable, loose fitting clothing. Children are encouraged to wear pajamas. - Jewelry must be removed prior to entering the operating room. Rings and piercings that are not removed may be cut off. - The hospital will not accept responsibility for valuables. - Please leave all valuables, including medications, at home the day of surgery. If you are going home after surgery, a licensed petroleum transport driver must drive you home. - NO public transportation without another adult. - We recommend that an adult stay with you for 24 hours following discharge. - We also recommend that you do not drive, make important decision, drink alcoholic beverages, or take any drugs that were not prescribed by your health care provider for at least 24 hours after your discharge time. For Pediatric surgeries, we recommend two adults accompany the child home (only one inside the building at this time). Follow any additional instructions given to you from your surgeon. If you or anyone in your household have experienced Covid symptoms in the past week, please notify your surgeon or the nurse liaison at the phone number below for possible testing. Telephone instructions given to PATIENT and asked if any additional questions and then verbalized understanding. Patient advised to call surgeon office or pre surgery nurse liaison [phone] if any additional questions.
--- NOTE | ~2022-06-01 | XR_ITS ---
EXAMINATION: XR surgery orthopedic DATE: 06/01/2022 11:35 CDT INDICATION: REMOVAL C-WIRE LT MIDDLE FINGER . TECHNIQUE: 4 fluoroscopic images of the left third digit were obtained during wire removal performed by the surgeon. I was not present in the operating room. Fluoroscopy exposure time was 6 seconds. Cum ulative dose was 0.0368 mGy. COMPARISON: 04/28/2022 FINDINGS: Fluoroscopic images document localization of and removal of the fixation wire in the left third digit . IMPRESSION: Fluoroscopic documentation of fixation wire removal. Please refer to the operative note for complete procedural details . Reviewed, dictated and finalized at location K. IMPRESSION: Fluoroscopic documentation of fixation wire removal. Please refer to the operat tan note for complete procedural details .
--- NOTE | 2022-06-01 08:26 | WPDHPUPDATE1 ---
History and Physical Update Update Date/Time: 06/01/22 08:26 History and Physical has been reviewed, including an updated exam of the patient. There are NO changes in the patient's condition. Risks, benefits, and alternatives have been discussed and questions answered. Patient agrees to proceed with procedure.
[2022-06-01 11:34] VITALS: BP 128/76; PULSE 78; RESP 16; O2SAT 99
[2022-06-01 11:44] VITALS: BP 129/84; PULSE 75; RESP 16; O2SAT 99
[2022-06-01] MEDS: LIDO 1%/EPINEPHRINE 1:100,000 50 ML VIAL 10 ML INFILTRATE (11:51)
[2022-06-01 11:54] VITALS: BP 140/73; PULSE 78; RESP 16; O2SAT 98
[2022-06-01 12:10] VITALS: BP 136/73; PULSE 71; RESP 16
--- NOTE | 2022-06-01 12:31 | W.PM.PROC2 ---
Procedure Note - Detailed Date of Procedure 06/01/22 Pre-op Diagnosis Hx of Laceration of Cenral Slip Left Middle Finger Post-op Diagnosis Same Procedure Performed Planned removal of fixation C-wire from left middle phalanx of left middle finger Surgeon Dennis Pineda MD Anesthesia Local Description of Procedure The patient's left middle finger was marked in the holding area. He was taken to the operating room where he was able to put himself on the operating table. The extremity was prepped and draped in usual fashion. An intrathecal block with 1% lidocaine with epinephrine 3 milliliter was given. Adequate anesthesia was obtained. The digital tourniquet was applied. The digit was tested for pain control. The C-arm was brought to the table and a 25 gauge localizing needle was applied at the presumed site of the distal end of this C-wire. The site was confirmed by C-arm and the small incision was made. Blunt dissection revealed the distal end of the pin. This was grasped with a needle zuniga and retrieved without difficulty. The skin was closed with 3 simple 5 0 nylon stitches.. Well the digit was anesthetized we were able to increase the passive range of motion at the distal interphalangeal joint and at the proximal interphalangeal joint. This was demonstrated on images taken of the proximal interphalangeal joint in extension and passive flexion. The range of motion was demonstrated to the patient as well. A Band-Aid was applied around the stitches and a custom 3.5 cm volar splint was applied under Coban to the palmar surface of the proximal interphalangeal joint region for protection. Patient has instructions and some active range of motion by taking the splint off part of each day and therapy will be arranged for additional motion. Estimated Blood Loss 0 Drains No Packing No Pathology None sent Complications No immediate complications Condition Stable Disposition No change
--- NOTE | 2022-06-01 12:52 | SUR.PHASEII ---
Patient checked his own BG it was 252.
== END 2022-06-01 12:48 | disposition home or self-care (01) ==
PROVIDERS: Visit Provider Plastic Surgery
PROC: (CPT 20694; principal; 2022-06-01 11:30)
DX: Z47.2 Encounter for removal of internal fixation device (principal); Z87.828 Personal history of other (healed) physical injury and trauma
CPT/HCPCS: 20680; 99199

== ENCOUNTER 2022-10-11 15:48 | Emergency (ER) | payer OTHER, SELFPAY ==
--- NOTE | ~2022-10-11 | XR_ITS ---
Left Hand Technique: PA, oblique, and lateral views were obtained. Clinical History: Third digit pain Findings: No acute fracture or dislocation is seen. Osseous alignment is anatomic. Joint spaces are p reserved. Suggestion of mild soft tissue swelling the third digit in the region of the PIP joint. Impression: No osseous or articular abnormality. Questionable mild soft tissue swelling third digit the region of the PIP joint. Reviewed, dictated and finalized at location . R DESIGNER Impression: No osseous or articular abnormality. Questionable mild soft tissue swelling third digit the region of the PIP joint.
[2022-10-11 16:03] VITALS: BP 143/89; PULSE 86; RESP 16; TEMP 37.5; O2SAT 100
--- NOTE | 2022-10-11 16:27 | ED.GENADULT ---
HPI - General Adult General Chief complaint: Extremity Injury, Upper Stated complaint: middle finger lt hand injury Source: patient Mode of arrival: ambulatory Limitations: no limitations History of Present Illness HPI narrative: Patient presents for evaluation of pain in the 3rd digit of the left hand. He was seen in the emergency department at [facility] on 04/14/2022 for a laceration to that digit. Documentation from that time indicates that radiology noted a swan neck deformity of the digit. The ER provider touched base with Dr. Pineda and patient underwent repair of the left middle finger extensor tendon with internal c wire placement on 04/28/22. He had the c wire removed on 06/01/22. Pt states that he has had constant pain since the time of the injury. He reports decreased ROM of PIP and DIP joints of that digit. He states his pain is 7/10 in severity. Percocet has worked in the past. Oral diclofenac is the only NSAID that has been effective for him. Today he was lifting up a bag when he felt a pop in that digit. He came here for further evaluation. He states he would like to be seen by a different specialist however he states this is currently a worker's compensation case and other surgeons will not see him. Related Data Home Medications Medication Instructions Recorded Confirmed gabapentin 300 mg capsule 300 mg DIRECTED 10/11/22 10/11/22 insulin lispro 100 unit/mL 1 unit DIRECTED 10/11/22 10/11/22 subcutaneous solution (Humalog U-100 Insulin) insulin pump cart,automated,BT 10/11/22 10/11/22 (Omnipod 5 G6 Pods (Gen 5) subcutaneous cartridge) Allergies Allergy/AdvReac Type Severity Reaction Status Date / Time tramadol Allergy Unknown Headache Verified 06/01/22 11:07 fentanyl AdvReac Unknown Headache Verified 06/01/22 11:07 Soy Milk Allergy Severe Swelling Uncoded 06/01/22 11:07 of Lip/Tongue/Throat Review of Systems Review of Systems: CONSTITUTIONAL: Denies fever, chills, or sweats. EYES: Denies visual changes, redness, or discharge. ENT: Denies rhinorrhea, congestion, sore throat, or otalgia. CARDIOVASCULAR: Denies chest pain, palpitations, or edema. RESPIRATORY: Denies cough or dyspnea. GASTROINTESTINAL: Denies abdominal pain, nausea, vomiting, or diarrhea. GENITOURINARY: Denies dysuria or hematuria. SKIN: Denies rash or itching. MUSCULOSKELETAL: Reports pain in the 3rd digit of the left hand with decreased range of motion of the PIP and DIP joints of that digit. NEUROLOGIC: Denies headache, numbness, dizziness, or weakness. PSYCHIATRIC: Denies anxiety or depression. [facility] Past Medical History Medical History (Updated 10/11/22 @ 17:07 by Peewee Stokes, LOLA, ) ADHD Anxiety Type 1 diabetes mellitus with hyperglycemia, with long-term current use of insulin Surgical History Surgical History S/P tendon repair Family History Family History Other Family history of coronary artery disease Family history of malignant neoplasm of male breast Social History Social History Smoking packs per day: 1 Smoking cigarettes per day: 20.0 Years smoked: 13 Smoking pack-years: 13.00 Smoking status: Former smoker Tobacco type: e-cigarettes/vaping Smoking end date: 10/23/20 Alcohol intake: never Alcohol use details: occasional Substance use: current Substance use type: marijuana Other substance usage details: DAILY Spiritual care concerns: No Exam Narrative: GENERAL: Well-appearing, well-nourished, and in no acute distress. HEAD: Normocephalic, atraumatic. EYES: PERRLA and EOMI. ENT: Nares clear, no rhinorrhea or epistaxis. Mucous membranes moist. Oropharynx without tonsillar hypertrophy exudate or other lesions. Bilateral TMs pearly mujica nonbulging NECK: Supple.
== END 2022-10-11 17:14 | disposition home or self-care (01) ==
PROVIDERS: Emergency Provider Nurse Practitioner; PCP Emergency Medicine
DX: S66.303A Unspecified injury of extensor muscle, fascia and tendon of left middle finger at wrist and hand level, initial encounter (principal); E11.9 Type 2 diabetes mellitus without complications; Z87.891 Personal history of nicotine dependence; Z79.4 Long term (current) use of insulin; X58.XXXA Exposure to other specified factors, initial encounter
CPT/HCPCS: 73130; 99213; G0463

== ENCOUNTER 2025-09-30 06:38 | Emergency (ER) | payer OTHER, SELFPAY ==
[2025-09-30 06:48] VITALS: BP 138/56; RESP 20
[2025-09-30 07:32] VITALS: PULSE 68; O2SAT 100
[2025-09-30 07:33] VITALS: BP 128/77; PULSE 75; RESP 19; O2SAT 100
[2025-09-30 07:39] LABS: Influenza A QL RT-PCR Negative (Negative); Influenza B QL RT-PCR Negative (Negative); RSV RNA, RT-PCR Negative (Negative); SARS-CoV-2 RNA PCR Negative (Negative)
--- NOTE | 2025-09-30 07:40 | ED_ITS ---
HPI - SOB/Dyspnea General Chief Complaint: Shortness of Breath/Dyspnea Stated Complaint: flu like sx Time Seen by Provider: 09/30/25 07:40 History of Present Illness HPI Narrative: 35-year-old male with insulin-dependent type 1 diabetes presents emergency department with nonproductive cough sore throat. Triage complaint of shortness of breath noted patient denies any shortness of breath this feels like his throat is sore and so makes it difficult to breathe. He denies any fevers ch ills no rashes no polyuria polydipsia. Denies any abdominal pain nausea vomiting. Patient states he has sick contacts at home with similar symptoms. Patient is requesting a course of antibiotics specifically [place]. Related Data Home Medications ?Medication ?Instructions ?Recorded ?Confirmed ?Last Taken ?Type gabapentin 300 mg capsule 300 mg DIRECTED 10/11/22 10/11/22 Unknown History insulin lispro 100 unit/mL 1 unit DIRECTED 10/11/22 10/11/22 Unknown History subcutaneous solution (Humalog U-100 Insulin) insulin pump cart,automated,BT 10/11/22 10/11/22 Unkn own History (Omnipod 5 G6 Pods (Gen 5) subcutaneous cartridge) Allergies Allergy/AdvReac Type Severity Reaction Status Date / Time tramadol Allergy Unknown Headache Verified 09/30/25 06:39 fentanyl AdvReac Unknown Headache Verified 09/30/25 06:39 Soy Milk Allergy Severe Swelling Uncoded 06/01/22 11:07 of Lip/Tongue/Throat Review of Systems Review of Systems: All systems reviewed & are unremarkable except as noted in HPI and below PMFSH Past Medical History Medical History (Updated 09/30/25 @ 07:57 by Jesse Dumont MD) Type 1 diabetes mellitus with hyperglycemia, with long-term current use of insulin Anxiety ADHD Surgical History Surgical History S/P tendon repair Family History Family History Other Family history of coronary artery disease Family history of malignant neoplasm of male breast Social History Social History Smoking packs per day: 1 Smoking cigarettes per day: 20.0 Years smoked: 13 Smoking pack-years: 13.00 Smoking status: Former smoker Tobacco type: e-cigarettes/vaping Smoking end date: 10/23/20 Alcohol intake: never Alcohol use details: occasional Substance use: current Substance use type: marijuana Other substance usage details: DAILY Living arrangements: alone Spiritual care concerns: No Exam Narrative: EXAMINATION OF ORGAN SYSTEMS/BODY AREAS: Constitutional: Vital signs per nursing GENERAL:[No acute distress, non-toxic appearing.] HEAD: Normal with no signs of head trauma. EYES: EOMI, conjunctiva normal ENT: Hearing grossly intact, there is peritonsillar erythema but no exudate uvula midline. There is no stridor. No trismus. No associated cervical lymphadenopathy. LUNGS: Nonlabored breathing. Clear to auscultation bilaterally speaking full sentences HEART: [Regular rate and rhythm] ABD: [Soft], [nontender to palpation] EXT: Normal range of motion SKIN: [No rashes or lesions.] NEURO: [Alert. No gross focal sensory or strength deficits.] PSYCH: Normal affect Course Vital Signs Vital signs: Vital Signs Respiratory Rate 20 09/30/25 06:48 Blood Pressure 138/56 L 09/30/25 06:48 Oxygen Delivery Room Air 09/30/25 06:48 Pulse Rate 75 09/30/25 07:33 Respiratory Rate 19 09/30/25 07:33 Blood Pressure 128/77 09/30/25 07:33 Pulse Oximetry 100 09/30/25 07:33 Oxygen Delivery Room Air 09/30/25 07:32 MDM Differential Diagnosis Differential Diagnosis: 35-year-old male presents with 4 suspect is almost certainly bronchitis is viral etiology given the sick contacts at presentation. He is well appearing normal curve breathing point care glucose within acceptable limits. Discussed with them that I do not have any suspicion for pneumonia given his clear lung sounds and appropriate room air is afebrile. Similarly I have low suspicion for atypical pneumonia and I think the antibiotics likely and I can help him, he understands the risks I limited to diarrhea chair decision made to do a short course of antibiotics. I did discuss with them the symptomatic treatment for his pharyngitis the 1 time dose of dexamethasone she has had the past and that affected his blood sugars. Otherwise will be given a work note strict return precautions understanding questions answered discharged in stable condition. Medical Records I have reviewed the following patient records and this information was taken into consideration when formulating the assessment and plan.: previous labs and previous ER visits Lab Data MDM Lab Attestation statement: I personally reviewed the patient's lab results. Labs: Lab Results 09/30/25 Range/Units 06:56 Influenza A (RT-PCR) Negative (Negative) Influenza B (RT-PCR) Negative (Negative) RSV (RT-PCR) Negative (Negative) SARS-CoV-2 RNA (RT-PCR) Negative (Negative) Discharge Plan Discharge Clinical Impression: Acute bronchitis with asthma Patient Disposition: Home Condition: Stable Instructions: Antibiotic Form, Acute Bronchitis (ED) Patient Language: [place] Prescriptions: New azithromycin 250 mg tablet See Rx Instructions .ROUTE .COMPLEX Qty: 6 0RF Rx Instructions: For 250 mg dose pack: take 500 mg today (day 1), then 250 mg for 4 days (days 2-5) No Action gabapentin 300 mg capsule 300 mg DIRECTED insulin lispro [Humalog U-100 Insulin] 100 unit/mL solution 1 unit DIRECTED (DME) Omnipod 5 G6 Pods (Gen 5) Cartridge SUBCUT (DME) pen needle, diabetic 30 gauge x 5/16 needle See Rx Instructions .ROUTE .MEDSUPPLY Qty: 400 2RF Rx Instructions: use to inject 4 times daily (DME) insulin syringe-needle U-100 [BD Insulin Syringe Ultra-Fine] 1 mL 30 gauge x 1/2 syringe See Rx Instructions .ROUTE .MEDSUPPLY Qty: 300 0RF Rx Instructions: use with insulin three times daily (DME) Contour Next Test Strips Strip See Rx Instructions .ROUTE .MEDSUPPLY Qty: 600 1RF Rx Instructions: Use to check BS 4-6 times daily Follow-up/Referrals: Troy Desai MD [Primary Care Provider, [facility]] Time of Disposition: 07:58
[2025-09-30] MEDS: AZITHROMYCIN 500 MG TABLET PO (08:01)
[2025-09-30 08:09] VITALS: BP 124/74; PULSE 78; RESP 18; O2SAT 98
== END 2025-09-30 08:06 | disposition home or self-care (01) ==
PROVIDERS: Emergency Medicine; Emergency Provider Emergency Medicine; PCP Emergency Medicine
DX: J20.9 Acute bronchitis, unspecified (principal); J45.909 Unspecified asthma, uncomplicated; Z20.822 Contact with and (suspected) exposure to COVID-19; E10.9 Type 1 diabetes mellitus without complications; Z87.891 Personal history of nicotine dependence; Z79.4 Long term (current) use of insulin
CPT/HCPCS: 87637; 99283; J8540